=== PATIENT | female | born 1950 | race Caucasian/White ===

== ENCOUNTER 2024-09-20 12:58 | Outpatient (CLI) | payer MEDICARE, SELFPAY | END 2024-09-20 12:59 | disposition home or self-care (01) | PROVIDERS: PCP Family Medicine; Visit Provider Family Medicine | DX: E78.2 Mixed hyperlipidemia (principal); E03.9 Hypothyroidism, unspecified; E66.01 Morbid (severe) obesity due to excess calories; D63.8 Anemia in other chronic diseases classified elsewhere; E21.3 Hyperparathyroidism, unspecified; E11.22 Type 2 diabetes mellitus with diabetic chronic kidney disease; I12.9 Hypertensive chronic kidney disease with stage 1 through stage 4 chronic kidney disease, or unspecified chronic kidney disease; N18.9 Chronic kidney disease, unspecified; M81.0 Age-related osteoporosis without current pathological fracture; G89.29 Other chronic pain | CPT/HCPCS: 80053; 80061; 83735; 84439; 84443; 85025 ==

== ENCOUNTER 2025-02-08 12:44 | Outpatient (CLI) | payer OTHER, SELFPAY | END 2025-02-08 12:45 | disposition home or self-care (01) | PROVIDERS: PCP Family Medicine; Visit Provider Family Medicine | DX: I10 Essential (primary) hypertension (principal); I25.10 Atherosclerotic heart disease of native coronary artery without angina pectoris | CPT/HCPCS: 80048; 83735; 85025 ==